=== PATIENT | male | born 1935 | race Caucasian/White ===

== ENCOUNTER 2016-08-11 13:00 | Outpatient (RCR) | payer MEDICARE ==
--- OUTSIDE RECORDS SUMMARY | 2016-08-04 12:56 | XMS REPORT | Continuity of Care Document ---
Author Author [facility] Organization [facility] Address Unknown Phone Unavailable Care Team Providers Care Corporate Pilot Name Role Phone Pacheco Bone PCP [phone] Source Comments Some departments are not documenting in the electronic medical record. If you do not see the information that you expected, contact Release of Information in the Health Information Management department at [phone] for further assistance in locating additional records.[facility] Active Allergies and Adverse Reactions No Known Allergies Current Medications Prescription Sig. Disp. Refills Start End Date Status Date SIMETHICONE (GAS-X PO) Take by mouth daily. Active fluticasone (FLONASE) 50 Apply 2 Sprays to each Active mcg/actuation nasal spray nostril as directed daily. RANITIDINE HCL PO Take 150 mg by mouth Active twice daily. naproxen (NAPROSYN) 500 Take 500 mg by mouth Active mg tablet daily. DILTIAZEM HCL (TAZTIA XT Take 120 mg by mouth Active PO) daily. lisinopril/hydrochlorothi Take by mouth daily. Active azide (ZESTORETIC) 20/25 tablet potassium chloride(+) Take 8 mEq by mouth Active (KLOR-CON 8) 8 mEq tablet daily. citalopram (CELEXA) 20 mg Take 20 mg by mouth at 05/08/20 Active tablet bedtime daily. 14 clidinium/chlordiazePOXID Take 1 Cap by mouth at Active E(+) (LIBRAX) 2.5/5 mg bedtime daily. 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 Social History Tobacco Use Types Packs/Day Years Used Date Former Smoker Quit: 04/28/1985 Smokeless Tobacco: Never Used Alcohol Use Drinks/Week oz/Week Comments Yes 0-1 Cans of 0.0 beer Last Filed Vital Signs Vital Sign Reading Time Taken Blood Pressure 154/77 08/08/2014 1:42 PM CDT Pulse 88 08/08/2014 1:42 PM CDT Temperature 36.5 C (97.7 F) 08/08/2014 1:42 PM CDT Respiratory Rate - - Height 1.753 m (5' 9") 08/08/2014 1:42 PM CDT Weight 74.844 kg (165 lb) 08/08/2014 1:42 PM CDT Body Mass Index 24.36 08/08/2014 1:42 PM CDT Oxygen Saturation 97% 08/08/2014 1:42 PM CDT Plan of Care Health Maintenance Due Date Last Done Comments Physical (Comprehensive) 1942 Exam Pertussis Vaccine 1945 Tetanus Vaccine 1951 Shingles Vaccine 1994 Prevnar/Pneumovax (#1) 1999 Influenza Vaccine 06/19/2015 Results from Last 3 Months Not on file
[2016-08-04] MEDS: IRON SUCROSE 250 MG/NS 100 ML IVPB IV SCH ×2 (13:40)
[2016-08-04 14:15] VITALS: BP 146/89
[~2016-08-11] VITALS: Ht 177.8 cm; Wt 72.6 kg
[~2016-08-11 13:00] MED LIST: ASP325T PO; CHLO1CAP PO; CHLO1CAP61 PO; CITA20TA12 PO; CITA20TA4 PO; DILT120C57 PO; DLT240CCR PO; ENXP40I.4 SC; FAMO20TA13 PO; FLUT16SP22 NS; HCT25T PO; HYDR-34 PO; HYDR118S10 PO; KCL8CCR PO; LATA2.5D5 OU; LISI1TAB10 PO; LSNP20T PO; NAPR-689 PO; Naproxen PO; POTA8CAP9 PO; POTA8TAB6 PO; RANI150C11 PO; [UNRECOGNIZED DRUG - OTHER] PO
[2016-08-11] MEDS: IRON SUCROSE 250 MG/NS 100 ML IVPB IV SCH ×2 (13:20)
[2016-08-11 13:53] VITALS: BP 187/81
== END 2016-11-02 | disposition home or self-care (01) ==
LOC: SDC 13:00
PROVIDERS: ATTEND Nurse Practitioner Family
DX: E61.1 Iron deficiency (principal)
CPT/HCPCS: 96365

== ENCOUNTER 2016-12-02 12:25 | Outpatient (RCR) | payer MEDICARE ==
--- OUTSIDE RECORDS SUMMARY | 2016-10-22 14:01 | XMS REPORT | Continuity of Care Document ---
Author Author [facility] Organization [facility] Address Unknown Phone Unavailable Care Team Providers Care Computator Name Role Phone Pacheco Bone PCP [phone] Source Comments Some departments are not documenting in the electronic medical record. If you do not see the information that you expected, contact Release of Information in the Health Information Management department at [phone] for further assistance in locating additional records.[facility] Active Allergies and Adverse Reactions No Known [...] Vaccine 1994 Prevnar/Pneumovax (#1) 1999 Influenza Vaccine 06/19/2016 Results from Last 3 Months Not on file
== END 2016-12-16 13:18 | disposition home or self-care (01) ==
PROVIDERS: ATTEND Nurse Practitioner Family
DX: R53.1 Weakness (principal); R26.9 Unspecified abnormalities of gait and mobility; R29.6 Repeated falls

== ENCOUNTER → 2017-01-01 | Outpatient (CLI) | payer MEDICARE ==
--- OUTSIDE RECORDS SUMMARY | 2017-01-01 07:04 | XMS REPORT | Continuity of Care Document ---
Author Author [facility] Organization [facility] Address Unknown Phone Unavailable Care Team Providers Care Machine Operator Slitter Technician Name Role Phone Pacheco Bone PCP [phone] Source Comments Some departments are not documenting in the electronic medical record. If you do not see the information that you expected, contact Release of Information in the Health Information Management department at [phone] for further assistance in locating additional records.[facility] Active Allergies and Adverse Reactions No [...]
== END ==
LOC: PREOP 07:00
PROVIDERS: ATTEND Surgery
DX: Z01.818 Encounter for other preprocedural examination (principal); K62.5 Hemorrhage of anus and rectum; D50.9 Iron deficiency anemia, unspecified

== ENCOUNTER → 2017-04-17 | Outpatient (CLI) | payer MEDICARE ==
--- NOTE | 2017-04-17 14:31 | Diagnostic Imaging Report ---
INDICATION: Fall with dizziness. Noncontrast brain CT is performed. Comparison made with the to the prior study of 05/10/2014. There are diffuse atrophic changes. There are patchy low-density changes throughout the deep white matter of moderate severity, compatible with chronic ischemic change. There is no acute hemorrhage or mass effect or midline shift. Ventricles are normal in size for age. Calvarial windows are unremarkable. IMPRESSION: Diffuse atrophic changes with chronic ischemic changes in deep white matter. No acute intracranial abnormality. Dictated by: Dictated on workstation # [id number]
== END ==
LOC: RAD 12:13
PROVIDERS: ATTEND Nurse Practitioner Family
DX: G20 Parkinson's disease (principal)
CPT/HCPCS: 70450

== ENCOUNTER 2017-05-31 08:54 | Emergency (ER) | payer MEDICARE ==
[~2017-05-31] VITALS: Ht 177.8 cm; Wt 72.6 kg
--- OUTSIDE RECORDS SUMMARY | 2017-05-31 08:59 | XMS REPORT | Clinical Summary ---
Author Author [facility] Organization [facility] Address Unknown Phone Unavailable Care Team Providers Care Order Picker Name Role Phone PCP Unavailable Source Comments Some departments are not documenting in the electronic medical record. If you do not see the information that you expected, contact Release of Information in the Health Information Management department at [phone] for further assistance in locating additional records.[facility] Allergies No Known Allergies Current Medications Prescription Sig. 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 Family History Medical History Relation Name Comments Cancer-Ovarian Maternal Aunt Cancer-Colon Maternal Uncle Cancer-Lung Other Cousin Cancer-Lung Paternal Uncle Relation Name Status Comments Maternal Aunt Maternal Uncle Other Cousin Alive Paternal Uncle Social History Tobacco Use Types Packs/Day Years Used Date Former Smoker Quit: 04/28/1985 Smokeless Tobacco: Never Used Alcohol Use Drinks/Week oz/Week Comments Yes 0-1 Cans of 0.0 beer Sex Assigned at Date Recorded Not on file Last Filed Vital Signs Vital Sign Reading Time Taken Blood Pressure 154/77 08/08/2014 1:42 PM CDT Pulse 88 08/08/2014 1:42 PM CDT Temperature 36.5 C (97.7 F) 08/08/2014 1:42 PM CDT Respiratory Rate - - Oxygen Saturation 97% 08/08/2014 1:42 PM CDT Inhaled Oxygen - - Concentration Weight 74.8 kg (165 lb) 08/08/2014 1:42 PM CDT Height 175.3 cm (5' 9") 08/08/2014 1:42 PM CDT Body Mass Index 24.37 08/08/2014 1:42 PM CDT Plan of Treatment Health Maintenance Due Date Last Done Comments PHYSICAL (COMPREHENSIVE) 1942 EXAM PERTUSSIS VACCINE 1945 TETANUS VACCINE 1951 SHINGLES VACCINE 1994 PREVNAR/PNEUMOVAX (#1) 1999 INFLUENZA VACCINE 06/19/2017 Results Not on filefrom Last 3 Months
[2017-05-31] MEDS ORDERED: NS IV 500 ML 500 ML IV ONE (09:07)
[2017-05-31] MEDS ORDERED: ROCURONIUM 50 MG/5 ML (ZEMURON) VIAL IV ONE (09:15)
[2017-05-31] MEDS ORDERED: ATROPINE INJECTION 1 MG/10 ML SYR (ABBOTT) INJ ONE (09:15)
[2017-05-31] MEDS ORDERED: fentaNYL INJECTION 100 MCG/2 ML AMP INJ ONE (09:15)
[2017-05-31] MEDS ORDERED: EPINEPHrine INJECTION 1 MG/ML AMP INJ ONE (09:15)
[2017-05-31] MEDS ORDERED: MIDAZOLAM 5 MG/5 ML (VERSED) VIAL INJ ONE (09:15)
[2017-05-31 09:21] LABS: BASOPHILS % (AUTO) 0 % (0-10); EOSINOPHILS % (AUTO) 0 % (0-10); LYMPHOCYTES # (AUTO) 0.7 X 10^3 (1.0-4.0); LYMPHOCYTES % (AUTO) 7 % (12-44); MEAN CORPUSCULAR HEMOGLOBIN 26 PG (25-34); MEAN CORPUSCULAR HGB CONC 33 G/DL (32-36); MEAN CORPUSCULAR VOLUME 80 FL (80-99); MEAN PLATELET VOLUME 11.8 FL (7.4-10.4); MONOCYTES # (AUTO) 1.8 X 10^3 (0.0-1.0); MONOCYTES % (AUTO) 19 % (0-12); NEUTROPHILS % (AUTO) 74 % (42-75); PLATELET COUNT 343 10^3/uL (130-400); RED BLOOD COUNT 4.34 10^6/uL (4.35-5.85); RED CELL DISTRIBUTION WIDTH 14.4 % (10.0-14.5); WHITE BLOOD COUNT 9.5 10^3/uL (4.3-11.0)
[2017-05-31] MEDS ORDERED: fentaNYL INJECTION 100 MCG/2 ML AMP ONE ×2 (09:27→09:28)
[2017-05-31] MEDS ORDERED: HEParin (CATH LAB) 1,000 ML IV ONE (09:27)
[2017-05-31] MEDS ORDERED: NS IV 1000 ML 2,000 ML ONE (09:27)
[2017-05-31] MEDS ORDERED: NITROGLYCERIN DRIP 25 MG/D5W 0 ML IV ONE (09:27)
[2017-05-31] MEDS ORDERED: MIDAZOLAM 5 MG/5 ML (VERSED) VIAL ONE (09:29)
--- NOTE | 2017-05-31 09:34 | Diagnostic Imaging Report ---
INDICATION: Shortness of breath COMPARISON: 05/10/14 FINDINGS: Single view of the chest demonstrates cardiac enlargement with slight central vascular congestion. There is no pneumothorax or effusion. Osseous structures are normal. IMPRESSION: Cardiac enlargement with slight central vascular congestion. Dictated by: Dictated on workstation # [id number]
[2017-05-31 09:39] LABS: ALBUMIN 3.3 GM/DL (3.2-4.5); BILIRUBIN,TOTAL 0.8 MG/DL (0.1-1.0); CALCIUM 10.9 MG/DL (8.5-10.1); CREATININE SERUM 3.81 MG/DL (0.60-1.30); TOTAL PROTEIN 7.4 GM/DL (6.4-8.2)
[2017-05-31 09:46] LABS: TROPONIN I 1.76 NG/ML (<0.30)
[2017-05-31] MEDS ORDERED: D5W 250 ML (IVPB) 250 ML IV ONE (09:46)
[2017-05-31] MEDS ORDERED: NOREPINEPHRINE 4 MG/4 ML (LEVOPHED) AMP IV ONE (09:47)
--- NOTE | 2017-05-31 10:38 | ED General ---
General Source of Information: Patient, EMS, Family Exam Limitations: Other (clinical condition) History of Present Illness Time Seen by Provider: 09:00 Initial Comments Here by EMS with report of vomiting coffee-ground emesis and having dark, tarry and/or bloody stools overnight. His ex- reports that he had low blood pressure overnight in the 70s. Apparently he is had some abdominal pain. She reports that he was was to get a colonoscopy 6 months ago but decided he did not want to do that because he did not want a colostomy or surgeries. 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 Patient is in extremis on arrival and is unable to answer questions well and follows some commands. Timing/Duration: 24 Hours Severity: Moderate, Severe Associated Systoms: No Chest Pain, No Fever/Chills, Loss of Appetite, Nausea/ Vomiting, Weakness Allergies and Home Medications Allergies Coded Allergies: No Known Drug Allergies (Unverified , 05/10/14) Home Medications Aspirin 325 Mg Tab, 325 MG PO DAILY, #30 Prescribed by: CY DYSON on 05/23/14 1121 Citalopram Hydrobromide 20 Mg Tablet, 20 MG PO HS, (Reported) Diltiazem Hcl 240 Mg Cap, 240 MG PO DAILY, #30 Prescribed by: CY DYSON on 05/23/14 1121 Fluticasone Propionate 16 Gm Naspr, 2 SPRAYS NS HS, (Reported) Hctz/Lisinopril 1 Tab Tablet, 1 TAB PO DAILY, (Reported) Naproxen 500 Mg Tablet, 500 MG PO BID, (Reported) Potassium Chloride 8 Meq Tablet.sa, 8 MEQ PO BID, (Reported) Ranitidine Hcl 150 Mg Capsule, 150 MG PO BID, (Reported) Constitutional: see HPI, weakness EENTM: no symptoms reported Respiratory: see HPI Cardiovascular: no symptoms reported Gastrointestinal: see HPI, abdominal pain, hematemesis, melena, vomiting, other (right inguinal hernia) Genitourinary: no symptoms reported Musculoskeletal: no symptoms reported Skin: no symptoms reported Psychiatric/Neurological: No Symptoms Reported Other Review of systems Limited due to altered mental status and clinical condition. All Other Systems Reviewed Negative Unless Noted: Yes Past Jzfzkeb-Ajmorv-Fkgaxe Hx Patient Social History Recreational Drug Use: No Smoking Status: Unknown if Ever Smoked Recent Hopitalizations: No Immunizations Up To Date Date of Pneumonia Vaccine: Aug 10, 2013 Date of Influenza Vaccine: Jul 28, 2016 Seasonal Allergies Seasonal Allergies: Yes Surgeries HX Surgeries: Yes Respiratory Hx Respiratory Disorders: No Cardiovascular Hx Cardiac Disorders: Yes Neurological Hx Neurological Disorders: Yes Neurological Disorders: Parkinson's Disease Genitourinary Hx Genitourinary Disorders: No Gastrointestinal Hx Gastrointestinal Disorders: No Musculoskeletal Hx Musculoskeletal Disorders: Yes (Right femur lesion: kathie placement, Mon, 05/08.) Musculoskeletal Disorders: Degenerate Disk Disease, Arthritis Endocrine Hx Endocrine Disorders: No HEENT HX ENT Disorders: No Cancer Hx Cancer: No Psychosocial Hx Psychiatric Problems: No Integumentary HX Skin/Integumentary Disorder: No Reviewed Nursing Assessment Reviewed/Agree w Nursing PMH: Yes Family Medical History Other Records per chart review as patient unable to give significant history. Physical Exam Vital Signs Vital Sign - Last 12Hours 05/31/17 08:55 Temp 94.9 Pulse 55 Resp 26 B/P (MAP) 68/43 Pulse Ox 78 O2 Delivery Room Air Capillary Refill : General Appearance: Chronically ill, Mild Distress, Thin HEENT: PERRL/EOMI, Pharynx Normal Neck: Non Tender, Supple Respiratory: Lungs Clear, Normal Breath Sounds Cardiovascular: Regular Rate, Rhythm, No Murmur Gastrointestinal: Abnormal Bowel Sounds (very quiet), Guarding, Tenderness ( diffuse) Rectal: Decreased Tone, Heme Positive Stool Back: Normal Inspection, No Vertebral Tenderness Extremity: Non Tender, No Calf Tenderness Neurologic/Psychiatric: Disoriented x3, Motor Weakness (diffuse) Skin: Cool, Pallor Focused Exam Lactic Acid Level Laboratory Tests Test 05/31/17 09:05 Lactic Acid Level 4.01 MMOL/L (0.50-2.00) *H Lumen: triple Central Line Procedure: betadine prep Position: internal jugular (R) Complications: none Post Position: sutured, good blood return Progress Emergent placement of right IJ via ultrasound guidance.. Good Flush and return. Patient prior to reviewing with x-ray. Date of ETT Placement: May 31, 2017 Time of ETT Placement: 10:00 Intubation Method: orotracheal Tube Size: 7.5 Medications: Fentanyl, Rocuronium, Versed Positive End Tide CO2: Yes Breath Sounds after Intubation: bilateral-equal Intubation Complications: vomited Post Intubation Xray: No Progress Confirmed via auscultation and end-tidal CO2. Patient prior to x-ray. O2 sats did show improvement with bagging after intubation. Progress/Results/Core Measures Results/Orders Lab Results Laboratory Tests Test 05/31/17 09:05 Range/Units White Blood Count 9.5 4.3-11.0 10^3/uL Red Blood Count 4.34 L 4.35-5.85 10^6/uL Hemoglobin 11.4 L 13.3-17.7 G/DL Hematocrit 35 L 40-54 % Mean Corpuscular Volume 80 80-99 FL Mean Corpuscular Hemoglobin 26 25-34 PG Mean Corpuscular Hemoglobin Concent 33 32-36 G/DL Red Cell Distribution Width 14.4 10.0-14.5 % Platelet Count 343 130-400 10^3/uL Mean Platelet Volume 11.8 H 7.4-10.4 FL Neutrophils (%) (Auto) 74 42-75 % Lymphocytes (%) (Auto) 7 L 12-44 % Monocytes (%) (Auto) 19 H 0-12 % Eosinophils (%) (Auto) 0 0-10 % Basophils (%) (Auto) 0 0-10 % Neutrophils # (Auto) 7.0 1.8-7.8 X 10^3 Lymphocytes # (Auto) 0.7 L 1.0-4.0 X 10^3 Monocytes # (Auto) 1.8 H 0.0-1.0 X 10^3 Eosinophils # (Auto) 0.0 0.0-0.3 10^3/uL Basophils # (Auto) 0.0 0.0-0.1 10^3/uL Sodium Level 136 135-145 MMOL/L Potassium Level 5.0 3.6-5.0 MMOL/L Chloride Level 101 98-107 MMOL/L Carbon Dioxide Level 18 L 21-32 MMOL/L Anion Gap 17 H 5-14 MMOL/L Blood Urea Nitrogen 90 H 7-18 MG/DL Creatinine 3.81 H 0.60-1.30 MG/DL Estimat Glomerular Filtration Rate 15 BUN/Creatinine Ratio 24 Glucose Level 95 70-105 MG/DL Lactic Acid Level 4.01 *H 0.50-2.00 MMOL/L Calcium Level 10.9 H 8.5-10.1 MG/DL Total Bilirubin 0.8 0.1-1.0 MG/DL Aspartate Amino Transf (AST/SGOT) 33 5-34 U/L Alanine Aminotransferase (ALT/SGPT) 7 0-55 U/L Alkaline Phosphatase 79 40-136 U/L Troponin I 1.76 *H <0.30 NG/ML Total Protein 7.4 6.4-8.2 GM/DL Albumin 3.3 3.2-4.5 GM/DL Smear Scan YES My Orders Orders - DENIS SHEPARD MD Cbc With Automated Diff (05/31/17:07) Comprehensive Metabolic Panel (05/31/17:07) Lactic Acid Analyzer (05/31/17:07) Troponin I (05/31/17:07) Chest 1 View, Ap/Pa Only (05/31/17:07) Saline Lock/Iv-Start (05/31/17:07) Fecal Occult Bedside (05/31/17:07) Ekg Tracing (05/31/17:) Catheter(Urinary) Insert & Ass 03,15 (05/31/17 09:07) O2 (05/31/17 09:07) Monitor-Rhythm Ecg Trace Only (05/31/17:07) Saline Lock/Iv-Start (05/31/17 09:07) Ns Iv 500 Ml (Sodium Chloride 0.9%) (05/31/17 09:07) Type And Screen (05/31/17:) Ns Iv 1000 Ml (Sodium Chloride 0.9%) (05/31/17 09:27) Nitroglycerin Drip 25 Mg/D5w (Nitroglyce (05/31/17 09:27) Heparin (Senior Software Test Engineer) (Heparin (Senior Software Test Engineer)) (05/31/17 09:27) Fentanyl Injection (Sublimaze Injection (05/31/17 09:27) Fentanyl Injection (Sublimaze Injection (05/31/17 09:28) Midazolam Injection (Versed Injection) (05/31/17 09:29) D5w 250 Ml (Ivpb) (Dextrose 5% Water Iv (05/31/17 09:46) Norepinephrine (Levophed) (05/31/17 09:47) Fentanyl Injection (Sublimaze Injection (05/31/17 09:15) Midazolam Injection (Versed Injection) (05/31/17 09:15) Rocuronium Injection (Zemuron Injection) (05/31/17 09:15) Atropine Inj 10 Mg Syringe (Atropine In (05/31/17 09:15) Epinephrine 1 Mg Injection (Adrenalin I (05/31/17 09:15) Vital Signs/I&O Vital Sign - Last 12Hours 05/31/17 08:55 Temp 94.9 Pulse 55 Resp 26 B/P (MAP) 68/43 Pulse Ox 78 O2 Delivery Room Air Progress Note : Progress Note Seen and evaluated on arrival by EMS. Patient hypotensive and hypothermic and has all findings concerning for septic shock. Second IV line established, labs , EKG, chest x-ray for catheter ordered. Monitor shows findings concerning for ST elevation TX. Pending EKG. 0922: EKG shows acute TX. Dr. Dutton pageivana. Initiated fluid bolus. I did talk with the patient's ex-. She did fill me in on the story via phone and states that the sons are at the ER and they would be able to make medical decisions. I did speak with them regarding patient's current clinical condition with Dr. Dutton here as well.. They spoke with him and the patient would like treatment of possible. Patient is rapidly declining. He will require intubation and aggressive medical therapy. Patient does not want chest compressions though and family does not want chest compressions given. There are 0955: Patient prepared for intubation. 1000: Intubated via video scope. Patient had significant amount of dark brown/black vomitus that was controlled with suction. NG tube placed and over 1 L of brown/ black vomitus obtained in canister. Patient's has declining blood pressure despite aggressive fluid infusion. Levophed initiated. Patient noted to have bradycardia and atropine 1 mg IV given. 1015: Right IJ placed via ultrasound guidance. Repeat atropine 60099 bradycardia. Patient is rapidly declining despite all aggressive medical maneuvers. Family brought to room. We did discuss continuing options. 1029: Patient had no cardiac motion on bedside ultrasound with no pulse. Agonal type rhythm on monitor. Family elected to stop further efforts. This was done. Time of 1029. All findings, concerns and information discussed with patient's family at bedside. Wildlife Veterinarian at bedside. I did discuss the case with Dr. Harris. Patient has recently seen Dr. Alvarez she should be able to sign certificate. ECG Initial ECG Impression Date: May 31, 2017 Initial ECG Impression Time: 09:16 Initial ECG Rate: 53 Comment Junctional escape rhythm with incomplete right bundle branch block and left anterior fascicular block. Anterior TX noted with ST elevation in the ventricular leads greatest in V2 and V3. Discussed with Dr. Dutton. Diagnostic Imaging Diagonstic Imaging: Xray Plain Films/CT/US/NM/MRI: chest Comments NAME: SD VALDEZ MED REC#: [id number] PT STATUS: REG ER : 1935 PHYSICIAN: DENIS SHEPARD MD ADMIT DATE: 05/31/17/ER Signed Date of Exam: 05/31/17 CHEST 1 VIEW, AP/PA ONLY INDICATION: Shortness of breath COMPARISON: 05/10/14 FINDINGS: Single view of the chest demonstrates cardiac enlargement with slight central vascular congestion. There is no pneumothorax or effusion. Osseous structures are normal. IMPRESSION: Cardiac enlargement with slight central vascular congestion. Dictated by: Dictated on workstation # [id number] Dict: 05/31/17 0932 Trans: 05/31/17 1130 Interpreted by: LILLIE HUTTON Electronically signed by: LILLIE HUTTON 05/31/17 1130 Critical Care Note Critical Care Start Time: 09:00 Stop Time: 10:29 Total Time (minutes) 60 Date of : May 31, 2017 Time of : 10:29 Departure Communication Time/Spoke to Consulting Physi: 09:22 Impression Impression: Primary Impression: Cardiopulmonary arrest Additional Impressions: GI bleed Qualified Codes: K92.2 - Gastrointestinal hemorrhage, unspecified Septic shock Disposition: 20 Condition: Departure-Patient Inst. Referrals: PK ALVAREZ MD (PCP/Family) Primary Care Physician DENIS SHEPARD MD May 31, 2017 10:38
--- NOTE | 2017-05-31 11:49 | Consultation-Cardiology ---
HPI-Cardiology Cardiology Consultation Date of Consultation 05/31/17 Date of Admission Time Seen by Provider: 09:30 Indication: hypotensive shock HPI 82 years old gentleman with no known history, started having abdominal pain and dizziness over the past 24-48 hours. Was becoming extremely weak and confused, came in to the emergency room, he was noted to have active GI bleed with hematemesis, hypotensive shock and ST elevation myocardial infarction the anterior wall. Upon my evaluation patient was lethargic. Short of breath and hypoxemic in addition to hypotensive with systolic blood pressure in the 60s. I visited with him and with Dr. SHEPARD, patient and his family did not want cardiac catheterization done, they understood the risks and the benefits. He cannot tolerate anticoagulation with the active bleed and hypotensive shock. After long discussion with the family, decision to proceed with intubation. Patient continued to be hypotensive, echocardiogram showed akinesia of the whole anterior wall and true apex true apex and inferoapex with ejection fraction around 10-15 percent. Family understand the poor prognosis. Home Medications & Allergies Allergies: Coded Allergies: No Known Drug Allergies (Unverified , 05/10/14) Home Medication List Reviewed: Yes GYK-Omfvjn-Scfkxj Hx Patient Social History Marital Status: Employed/Student: retired Alcohol Use: Denies Use Recreational Drug Use: No Smoking Status: Unknown if Ever Smoked 2nd Hand Smoke Exposure: No Recent Foreign Travel: No Recent Infectious Disease Expo: No Recent Hopitalizations: No Immunizations Up To Date Date of Pneumonia Vaccine: Aug 10, 2013 Date of Influenza Vaccine: Jul 28, 2016 Past Medical History unknown past medical history Family Medical History Family Medical Hx noncontributory to his current condition Constitutional: other (unable to provide full review of system, patient was having severe weakness, lethargy, shortness of breath and abdominal pain) Respiratory: cough, short of breath Cardiovascular: chest pain Gastrointestinal: abdominal pain (RUQ), hematemesis, melena, nausea, vomiting Genitourinary: other (absent urine output) Reviewed Test Results Reviewed Test Results Lab Laboratory Tests Test 05/31/17 09:05 Range/Units White Blood Count 9.5 4.3-11.0 10^3/uL Red Blood Count 4.34 L 4.35-5.85 10^6/uL Hemoglobin 11.4 L 13.3-17.7 G/DL Hematocrit 35 L 40-54 % Mean Corpuscular Volume 80 80-99 FL Mean Corpuscular Hemoglobin 26 25-34 PG Mean Corpuscular Hemoglobin Concent 33 32-36 G/DL Red Cell Distribution Width 14.4 10.0-14.5 % Platelet Count 343 130-400 10^3/uL Mean Platelet Volume 11.8 H 7.4-10.4 FL Neutrophils (%) (Auto) 74 42-75 % Lymphocytes (%) (Auto) 7 L 12-44 % Monocytes (%) (Auto) 19 H 0-12 % Eosinophils (%) (Auto) 0 0-10 % Basophils (%) (Auto) 0 0-10 % Neutrophils # (Auto) 7.0 1.8-7.8 X 10^3 Lymphocytes # (Auto) 0.7 L 1.0-4.0 X 10^3 Monocytes # (Auto) 1.8 H 0.0-1.0 X 10^3 Eosinophils # (Auto) 0.0 0.0-0.3 10^3/uL Basophils # (Auto) 0.0 0.0-0.1 10^3/uL Sodium Level 136 135-145 MMOL/L Potassium Level 5.0 3.6-5.0 MMOL/L Chloride Level 101 98-107 MMOL/L Carbon Dioxide Level 18 L 21-32 MMOL/L Anion Gap 17 H 5-14 MMOL/L Blood Urea Nitrogen 90 H 7-18 MG/DL Creatinine 3.81 H 0.60-1.30 MG/DL Estimat Glomerular Filtration Rate 15 BUN/Creatinine Ratio 24 Glucose Level 95 70-105 MG/DL Lactic Acid Level 4.01 *H 0.50-2.00 MMOL/L Calcium Level 10.9 H 8.5-10.1 MG/DL Total Bilirubin 0.8 0.1-1.0 MG/DL Aspartate Amino Transf (AST/SGOT) 33 5-34 U/L Alanine Aminotransferase (ALT/SGPT) 7 0-55 U/L Alkaline Phosphatase 79 40-136 U/L Troponin I 1.76 *H <0.30 NG/ML Total Protein 7.4 6.4-8.2 GM/DL Albumin 3.3 3.2-4.5 GM/DL Smear Scan YES Physical Exam Vital Signs Vital Sign - Last 12Hours 05/31/17 08:55 Temp 94.9 Pulse 55 Resp 26 B/P (MAP) 68/43 Pulse Ox 78 O2 Delivery Room Air Capillary Refill : Greater Than 3 Seconds General Appearance: Severe Distress Eyes: Bilateral Eye EOMI, Bilateral Eye Normal Inspection, Bilateral Eye PERRL HEENT: PERRL/EOMI, TMs Normal, Normal ENT Inspection, Pharynx Normal Neck: Full Range of Motion, Normal Inspection Respiratory: Chest Non Tender, Crackles, Respiratory Distress Cardiovascular: Regular Rate, Rhythm, Systolic Murmur, Gallop/S3 Gastrointestinal: Soft Back: Normal Inspection Extremity: Normal Inspection, No Pedal Edema Neurologic/Psychiatric: Alert, Motor Weakness Skin: Normal Color, Warm/Dry Lymphatic: No Adenopathy A/P-Cardiology Admission Diagnosis subacute myocardial infarction Coronary artery disease Hypotensive shock GI bleed Acute respiratory failure Assessment/Plan Subacute myocardial infarction, patient already have elevated troponin, ST elevation with Q-wave with total infarctional the whole anterior wall, per family request we will not proceed with emergency cardiac catheterization, the catheter lab team were called and they were available on premises. Patient cannot tolerate anticoagulation at this time due to the active bleed. GI bleed, massive upper and lower GI bleed, EGD to was placed with continuous suction having large amount of blood. Hypotensive shock, multifactorial as described above Acute respiratory failure, proceeded with intubation Acute renal failure, and new year, no urine output after [place] placement Anemia secondary to GI bleed, H&H are still in the lower normal value probably due to the acuity of the GI bleed Long discussion with the patient and his family, prognosis is poor. Echocardiogram showed ejection fraction 10 percent, congestive heart failure with acute left ventricular systolic dysfunction, ischemic cardiomyopathy, patient will not be able to tolerate beta blockers and or Spencer inhibitor and/or ARB due to the hypotensive shock. JOSEPH FERGUSON MD May 31, 2017 11:49
[2017-05-31 12:30] VITALS: BP 0/0
== END 2017-05-31 12:30 | disposition expired ==
LOC: EDUNIT# 08:54 → ER 08:55
DX: A41.9 Sepsis, unspecified organism (principal); R65.21 Severe sepsis with septic shock; I46.9 Cardiac arrest, cause unspecified; K92.2 Gastrointestinal hemorrhage, unspecified; G20 Parkinson's disease; M19.90 Unspecified osteoarthritis, unspecified site; Z79.82 Long term (current) use of aspirin
CPT/HCPCS: 36415; 51702; 71010; 80053; 83605; 84484; 85025; 86850; 86900; 86901; 86920; 93005; 93041; 93306; 96374